=== PATIENT | male | born 1940 | race Caucasian/White ===

== ENCOUNTER 2016-11-20 06:10 | Observation (INO) | payer MEDICARE, BC ==
[2016-11-20 07:02] LABS: HEMOGLOBIN 14.3 gm/dl (14.0-17.5); RED BLOOD COUNT 4.66 M/UL (4.20-5.50); WHITE BLOOD COUNT 3.6 K/UL (4.5-11.0)
[2016-11-20 07:20] LABS: BUN/CREATININE RATIO 23 (0-10)
[2016-11-20] MEDS ORDERED: GLUCOPHAGE1000 MG PO (11:36)
[2016-11-20] MEDS ORDERED: GLUCOTROL 10 MG10 MG PO (11:36)
[2016-11-20] MEDS ORDERED: LIPITOR TAB 2020 MG PO (11:37)
[2016-11-20] MEDS ORDERED: LOTREL 10-40 M1 EACH PO (11:39)
[2016-11-20] MEDS ORDERED: ZANTAC 150 MG150 MG PO (11:40)
[2016-11-20] MEDS ORDERED: ALDACTONE 25MG25 MG PO (11:40)
[2016-11-20] MEDS ORDERED: VITAMIN D1000 UNIT PO (11:41)
[2016-11-20] MEDS ORDERED: TYLENOL 500 MG500 MG PO (11:43)
[2016-11-20] MEDS ORDERED: ASPIRIN CHEWABL81 MG PO (11:43)
[2016-11-20] MEDS ORDERED: FISH OIL 1,2001 EAC2 PO (11:43)
[2016-11-20] MEDS ORDERED: HUMULIN 70100 UNIT/2 SQ ×2 (11:45→11:46)
[2016-11-20] MEDS ORDERED: LOPRESSOR100 MG PO (11:49)
[2016-11-21 06:33] LABS: HEMOGLOBIN 13.8 gm/dl (14.0-17.5); RED BLOOD COUNT 4.48 M/UL (4.20-5.50)
[2016-11-21 06:34] LABS: WHITE BLOOD COUNT 5.1 K/UL (4.5-11.0)
[2016-11-21 06:55] LABS: BUN/CREATININE RATIO 22 (0-10)
[2016-11-22 06:19] LABS: BUN/CREATININE RATIO 26 (0-10)
[2016-11-22] MEDS ORDERED: ASPIRIN EC325 MG PO (10:01)
== END 2016-11-22 10:24 | disposition home or self-care (01) ==
LOC: ER1 06:10 → M/S 08:00 → ZEROF 08:00 → M/S 09:19
PROVIDERS: Student in an Organized Health Care Education/Training Program; ADMIT Emergency Medicine
DX: R53.1 Weakness (principal); R47.81 Slurred speech; J11.1 Influenza due to unidentified influenza virus with other respiratory manifestations; I25.10 Atherosclerotic heart disease of native coronary artery without angina pectoris; E11.22 Type 2 diabetes mellitus with diabetic chronic kidney disease; I12.9 Hypertensive chronic kidney disease with stage 1 through stage 4 chronic kidney disease, or unspecified chronic kidney disease; N18.9 Chronic kidney disease, unspecified; G89.29 Other chronic pain; M54.5 Low back pain; K76.0 Fatty (change of) liver, not elsewhere classified; J43.9 Emphysema, unspecified; Z83.3 Family history of diabetes mellitus; Z82.3 Family history of stroke; Z79.82 Long term (current) use of aspirin; Z79.899 Other long term (current) drug therapy; Z95.1 Presence of aortocoronary bypass graft; Z98.1 Arthrodesis status; Z98.890 Other specified postprocedural states
CPT/HCPCS: ECHO; 36415; 70450; 70498; 70551; 71010; 80048; 80053; 80307; 81001; 82550; 82553; 82962; 83874; 84484; 85025; 85610; 85730; 93005; 93306; 93880; 99285; G0378; G0480; J7030; J7050; Q9963

== ENCOUNTER → 2020-11-22 | Outpatient (CLI) | payer MEDICARE, BC ==
[~2020-11-22] MED LIST: ALDACTONE 25MG25 MG PO; ASPIRIN CHEWABL81 MG PO; ASPIRIN EC325 MG PO; FARXIGA10 MG PO; FISH OIL 1,2001 EAC2 PO; GLUCOPHAGE1000 MG PO; GLUCOTROL 10 MG10 MG PO; HUMULIN 70100 UNIT/2 SQ; LIPITOR TAB 2020 MG PO; LOPRESSOR100 MG PO; LOTREL 10-40 M1 EACH PO; PERCOCET 7.5-31 EACH PO; TYLENOL 500 MG500 MG PO; VITAMIN D1000 UNIT PO; ZANTAC 150 MG150 MG PO
[2020-11-22 09:23] LABS: BUN/CREATININE RATIO 17 (0-10)
== END ==
LOC: LAB 08:24
PROVIDERS: Internal Medicine Nephrology
DX: R80.9 Proteinuria, unspecified (principal)
CPT/HCPCS: 36415; 80048; 82043; 82570; 84156

== ENCOUNTER 2021-02-19 02:30 | Emergency (ER) | payer MEDICARE, BC ==
[2021-02-19 02:54] LABS: HEMOGLOBIN 13.4 gm/dl (14.0-17.5); RED BLOOD COUNT 4.52 M/UL (4.20-5.50); WHITE BLOOD COUNT 10.6 K/UL (4.5-11.0)
[2021-02-19 03:00] LABS: BUN/CREATININE RATIO 14 (0-10)
== END 2021-02-19 06:00 | disposition home or self-care (01) ==
LOC: ER1 02:30
PROVIDERS: Family Medicine
DX: S09.90XA Unspecified injury of head, initial encounter (principal); E11.649 Type 2 diabetes mellitus with hypoglycemia without coma; Z79.4 Long term (current) use of insulin; W19.XXXA Unspecified fall, initial encounter; Y92.239 Unspecified place in hospital as the place of occurrence of the external cause
CPT/HCPCS: 70450; 80053; 82550; 82553; 82962; 83874; 84484; 85025; 93005; 99284

== ENCOUNTER → 2021-02-24 | Outpatient (CLI) | payer MEDICARE, BC | LOC: HEART 5 10:42 | DX: I50.9 Heart failure, unspecified (principal); I25.10 Atherosclerotic heart disease of native coronary artery without angina pectoris; I25.5 Ischemic cardiomyopathy; I08.2 Rheumatic disorders of both aortic and tricuspid valves; I27.20 Pulmonary hypertension, unspecified | CPT/HCPCS: 93306 ==

== ENCOUNTER 2021-05-23 08:34 | Inpatient (IN) | payer MEDICARE, BC ==
[~2021-05-23] VITALS: Ht 180.3 cm; Wt 107.5 kg
[~2021-05-23 08:34] MED LIST changes: -ALDACTONE 25MG25 MG PO; -ASPIRIN EC325 MG PO; -FISH OIL 1,2001 EAC2 PO; -HUMULIN 70100 UNIT/2 SQ; -LOPRESSOR100 MG PO; -LOTREL 10-40 M1 EACH PO; -TYLENOL 500 MG500 MG PO
[2021-05-23 09:17] LABS: HEMOGLOBIN 12.8 gm/dl (14.0-17.5); RED BLOOD COUNT 4.29 M/UL (4.20-5.50); WHITE BLOOD COUNT 11.8 K/UL (4.5-11.0)
[2021-05-23 09:40] LABS: BUN/CREATININE RATIO 9 (0-10)
[2021-05-23] MEDS ORDERED: ASPIRIN EC81 MG PO (10:01)
[2021-05-23] MEDS ORDERED: LOTREL 10-40 M1 EACH PO (11:39)
[2021-05-23] MEDS ORDERED: ALDACTONE 25MG25 MG PO (11:40)
[2021-05-23] MEDS ORDERED: TYLENOL EXTRA500 MG PO (11:43)
[2021-05-23] MEDS ORDERED: FISH OIL 1,2001 EAC2 PO (11:43)
[2021-05-23] MEDS ORDERED: NOVOLIN 70100 UNIT/2 INJ ×2 (11:45→11:46)
[2021-05-23] MEDS ORDERED: LOPRESSOR100 MG PO (11:49)
[2021-05-23 12:06] LABS: BORDETELLA PARAPERTUSSIS Not Detected (Not Detectd); BORDETELLA PERTUSSIS Not Detected (Not Detectd); CHLAMYDIA PNEUMONIAE Not Detected (Not Detectd); CORONAVIRUS HKU1 Not Detected (Not Detectd); CORONAVIRUS NL63 Not Detected (Not Detectd); CORONAVIRUS OC43 Not Detected (Not Detectd); CORONOAVIRUS 229E Not Detected (Not Detectd); HUMAN METAPNEUMOVIRUS Not Detected (Not Detectd); HUMAN RHINOVIRUS/ENTEROVIRUS Not Detected (Not Detectd); INFLUENZA A Not Detected (Not Detectd); INFLUENZA B Not Detected (Not Detectd); MYCOPLASMA PNEUMONIAE Not Detected (Not Detectd); PARAINFLUENZA VIRUS 1 Not Detected (Not Detectd); PARAINFLUENZA VIRUS 2 Not Detected (Not Detectd); PARAINFLUENZA VIRUS 3 Not Detected (Not Detectd); PARAINFLUENZA VIRUS 4 Not Detected (Not Detectd); RESPIRATORY SYNCYTIAL VIRUS Not Detected (Not Detectd)
[2021-05-23] MEDS ORDERED: OMEPRAZOLE20 MG PO (12:34)
[2021-05-23] MEDS ORDERED: GABAPENTIN400 MG PO (12:35)
[2021-05-23] MEDS ORDERED: CRESTOR10 MG PO (12:36)
[2021-05-23] MEDS ORDERED: VITAMIN C500 M4 PO (12:40)
[2021-05-23] MEDS ORDERED: VITAMIN B-121000 MCG PO (12:41)
[2021-05-23] MEDS ORDERED: MAGNESIUM500 MG PO (12:41)
[2021-05-23 13:14] LABS: SARS-CoV-2 NOT DETECTED (Not Detectd)
[2021-05-23] MEDS ORDERED: GLUCOPHAGE 500500 MG PO (16:45)
[2021-05-24 03:21] LABS: HEMOGLOBIN 11.8 gm/dl (14.0-17.5); RED BLOOD COUNT 3.94 M/UL (4.20-5.50); WHITE BLOOD COUNT 9.8 K/UL (4.5-11.0)
[2021-05-24 03:43] LABS: BUN/CREATININE RATIO 9 (0-10)
--- NOTE | 2021-05-24 11:56 | NUR ---
CALLED PROVIDER FOR NAUSEA MEDICATION FOR PATIENT. COULD NOT REACH PROVIDER. WILL CONTINUE TO MONITOR.
--- NOTE | 2021-05-24 12:03 | NUR ---
CALLED PROVIDER AGAIN FOR NAUSEA MEDICTION FOR PATIENT. NO ANSWER. MESSAGE LEFT WITH CONTACT INFO.
[2021-05-25 10:53] LABS: HEMOGLOBIN 10.9 gm/dl (14.0-17.5); RED BLOOD COUNT 3.65 M/UL (4.20-5.50); WHITE BLOOD COUNT 7.5 K/UL (4.5-11.0)
[2021-05-25 11:07] LABS: BUN/CREATININE RATIO 18 (0-10)
[2021-05-26 08:18] LABS: HEMOGLOBIN 11.1 gm/dl (14.0-17.5); RED BLOOD COUNT 3.78 M/UL (4.20-5.50); WHITE BLOOD COUNT 8.1 K/UL (4.5-11.0)
[2021-05-26 08:49] LABS: BUN/CREATININE RATIO 16 (0-10)
[2021-05-27 11:00] LABS: HEMOGLOBIN 10.4 gm/dl (14.0-17.5); RED BLOOD COUNT 3.46 M/UL (4.20-5.50); WHITE BLOOD COUNT 6.5 K/UL (4.5-11.0)
[2021-05-27 11:24] LABS: BUN/CREATININE RATIO 14 (0-10)
[2021-05-28 07:42] LABS: HEMOGLOBIN 10.4 gm/dl (14.0-17.5); RED BLOOD COUNT 3.43 M/UL (4.20-5.50); WHITE BLOOD COUNT 6.7 K/UL (4.5-11.0)
[2021-05-28 08:03] LABS: BUN/CREATININE RATIO 11 (0-10)
[2021-05-29 07:36] LABS: RED BLOOD COUNT 3.65 M/UL (4.20-5.50); WHITE BLOOD COUNT 7.3 K/UL (4.5-11.0)
[2021-05-29 07:59] LABS: BUN/CREATININE RATIO 12 (0-10)
[2021-05-30 11:44] LABS: HEMOGLOBIN 10.9 gm/dl (14.0-17.5); RED BLOOD COUNT 3.67 M/UL (4.20-5.50); WHITE BLOOD COUNT 7.6 K/UL (4.5-11.0)
[2021-05-30 12:15] LABS: BUN/CREATININE RATIO 12 (0-10)
[2021-05-30] MEDS ORDERED: ACETAMINOPHEN325 MG PO (14:01)
[2021-05-30] MEDS ORDERED: K-DUR TAB 10 M10 MEQ PO (14:01)
[2021-05-30] MEDS ORDERED: METOPROLOL SUCC25 MG PO (14:01)
[2021-05-30] MEDS ORDERED: OMNICEF 300 MG300 MG PO (14:04)
[2021-05-30] MEDS ORDERED: ZITHROMAX500 MG PO (14:04)
[2021-05-30 14:10] LABS: ANTI-CENTROMERE B ANTIBODIES <0.2 AI (0.0-0.9); ANTI-DNA (DS) AB QN <1 IU/mL (0-9); ANTI-JO-1 <0.2 AI (0.0-0.9); ANTICHROMATIN ANTIBODIES <0.2 AI (0.0-0.9); ANTIRIBOSOMAL P ANTIBODIES <0.2 AI (0.0-0.9); ANTISCLERODERMA-70 ANTIBODIES <0.2 AI (0.0-0.9); RNP ANTIBODIES <0.2 AI (0.0-0.9); SJOGREN'S ANTI-SS-A 0.3 AI (0.0-0.9); SJOGREN'S ANTI-SS-B <0.2 AI (0.0-0.9); SMITH ANTIBODIES <0.2 AI (0.0-0.9); SMITH/RNP ANTIBODIES <0.2 AI (0.0-0.9)
[2021-05-30] MEDS ORDERED: PROAIR HFA8.5 GM INH (14:14)
[2021-05-30] MEDS ORDERED: XOPENEX HFA15 GM INH (14:23)
[2021-05-31 08:13] LABS: ATYPICAL PANCA <1:20 titer (Neg:<1:20); CYTOPLASMIC (C-ANCA) <1:20 titer (Neg:<1:20); PERINUCLEAR (P-ANCA) <1:20 titer (Neg:<1:20)
== END 2021-05-30 18:33 | disposition home or self-care (01) | DRG 871 ==
LOC: ER1 08:34 → CDU 11:21 → MED SURG 4 11:21
PROVIDERS: Internal Medicine; Physician Assistant Medical; ADMIT Internal Medicine
DX: A41.9 Sepsis, unspecified organism (principal); J96.01 Acute respiratory failure with hypoxia; J18.9 Pneumonia, unspecified organism; Z20.822 Contact with and (suspected) exposure to COVID-19; I50.23 Acute on chronic systolic (congestive) heart failure; I47.2 Ventricular tachycardia; R65.20 Severe sepsis without septic shock; E11.9 Type 2 diabetes mellitus without complications; I25.5 Ischemic cardiomyopathy; E78.5 Hyperlipidemia, unspecified; D64.9 Anemia, unspecified; I25.10 Atherosclerotic heart disease of native coronary artery without angina pectoris; Z95.1 Presence of aortocoronary bypass graft; Z80.9 Family history of malignant neoplasm, unspecified; Z80.2 Family history of malignant neoplasm of other respiratory and intrathoracic organs; Z82.49 Family history of ischemic heart disease and other diseases of the circulatory system; I25.2 Old myocardial infarction; Z98.1 Arthrodesis status; Z87.891 Personal history of nicotine dependence; Z79.01 Long term (current) use of anticoagulants; Z79.1 Long term (current) use of non-steroidal anti-inflammatories (NSAID); Z79.82 Long term (current) use of aspirin; Z79.4 Long term (current) use of insulin; Z99.81 Dependence on supplemental oxygen; Z95.5 Presence of coronary angioplasty implant and graft; I11.0 Hypertensive heart disease with heart failure
CPT/HCPCS: 36415; 36600; 71045; 71046; 71275; 80048; 80053; 81001; 82550; 82553; 82803; 82962; 83036; 83516; 83605; 83735; 83874; 83880; 84100; 84439; 84443; 84484; 85025; 85027; 85379; 85652; 86140; 86256; 87040; 87633; 93005; 94760; 96374; 99285; J0456; J0696; J1650; J7030; Q9967; U0002

== ENCOUNTER → 2021-06-03 | Outpatient (CLI) | payer MEDICARE, BC ==
[~2021-06-03] MED LIST changes: +ACETAMINOPHEN325 MG PO; +ALDACTONE 25MG25 MG PO; +ASPIRIN EC81 MG PO; +CRESTOR10 MG PO; +FISH OIL 1,2001 EAC2 PO; +GABAPENTIN400 MG PO; +GLUCOPHAGE 500500 MG PO; +K-DUR TAB 10 M10 MEQ PO; +LOPRESSOR100 MG PO; +LOTREL 10-40 M1 EACH PO; +MAGNESIUM500 MG PO; +METOPROLOL SUCC25 MG PO; +NOVOLIN 70100 UNIT/2 INJ; +OMEPRAZOLE20 MG PO; +OMNICEF 300 MG300 MG PO; +PROAIR HFA8.5 GM INH; +TYLENOL EXTRA500 MG PO; +VITAMIN B-121000 MCG PO; +VITAMIN C500 M4 PO; +XOPENEX HFA15 GM INH; +ZITHROMAX500 MG PO
[2021-06-03 09:17] LABS: BUN/CREATININE RATIO 18 (0-10)
[2021-06-04 11:13] LABS: CREATININE, URINE 202.3 mg/dL (Not Estab.)
== END ==
LOC: LAB 08:17
PROVIDERS: Internal Medicine Nephrology
DX: R80.9 Proteinuria, unspecified (principal)
CPT/HCPCS: 36415; 80053; 82043; 82570; 84156

== ENCOUNTER 2021-06-09 16:28 | Emergency (ER) | payer MEDICARE, BC ==
[2021-06-09 18:29] LABS: RED BLOOD COUNT 3.84 M/UL (4.20-5.50); WHITE BLOOD COUNT 7.4 K/UL (4.5-11.0)
[2021-06-09] MEDS ORDERED: ZOFRAN4 MG PO (19:36)
== END 2021-06-09 20:20 | disposition home or self-care (01) ==
LOC: ER1 16:28
PROVIDERS: Preventive Medicine Occupational Medicine
DX: E86.0 Dehydration (principal); I10 Essential (primary) hypertension; E11.9 Type 2 diabetes mellitus without complications; Z95.1 Presence of aortocoronary bypass graft
CPT/HCPCS: 80053; 83690; 85025; 85652; 86140; 93005; 96374; 99284; J2405; Q9967

== ENCOUNTER → 2021-07-11 | Outpatient (CLI) | payer MEDICARE, BC ==
[~2021-07-11] MED LIST changes: +ZOFRAN4 MG PO
== END ==
LOC: KOH-I 12:49
DX: J18.9 Pneumonia, unspecified organism (principal); Z72.0 Tobacco use; R91.8 Other nonspecific abnormal finding of lung field
CPT/HCPCS: 71250

== ENCOUNTER → 2021-07-14 | Outpatient (CLI) | payer MEDICARE, BC | LOC: HEART 5 14:53 | DX: R59.0 Localized enlarged lymph nodes (principal); R94.2 Abnormal results of pulmonary function studies | CPT/HCPCS: 94060; 94729 ==

== ENCOUNTER → 2021-08-17 | Outpatient (CLI) | payer MEDICARE, BC ==
[~2021-08-17] MED LIST changes: +CLINDAMYCIN HC300 MG PO; +HYDROCODON-ACE1 EAC4 PO; +JARDIANCE10 MG PO; +LEVOFLOXACIN500 MG PO; +STOOL SOFTENER100 M1 PO; +VENTOLIN/PROVE0.5 ML INH; +ZESTRIL 40 MG T40 MG PO
[2021-08-17 11:09] LABS: HEMOGLOBIN 15.2 gm/dl (14.0-17.5); RED BLOOD COUNT 4.97 M/UL (4.20-5.50); WHITE BLOOD COUNT 12.3 K/UL (4.5-11.0)
[2021-08-17 11:43] LABS: BUN/CREATININE RATIO 31 (0-10)
== END ==
LOC: LAB 08:45
PROVIDERS: Internal Medicine Cardiovascular Disease
DX: I50.22 Chronic systolic (congestive) heart failure (principal); I25.10 Atherosclerotic heart disease of native coronary artery without angina pectoris; I45.9 Conduction disorder, unspecified; I25.5 Ischemic cardiomyopathy; R06.02 Shortness of breath
CPT/HCPCS: 36415; 71046; 80048; 85025; U0003

== ENCOUNTER → 2021-08-31 | Outpatient (CLI) | payer MEDICARE, BC | LOC: KOH-I 08-18 08:00 | DX: R59.0 Localized enlarged lymph nodes (principal) | CPT/HCPCS: 71250 ==

== ENCOUNTER → 2021-11-24 | Outpatient (CLI) | payer MEDICARE, BC ==
[2021-11-24 10:02] LABS: BUN/CREATININE RATIO 9 (0-10)
[2021-11-25 11:17] LABS: CREATININE, URINE 48.4 mg/dL (Not Estab.)
== END ==
LOC: LAB 08:45
PROVIDERS: Internal Medicine Nephrology
DX: R80.9 Proteinuria, unspecified (principal)
CPT/HCPCS: 36415; 80053; 82043; 82570; 84156

== ENCOUNTER → 2021-12-02 | Outpatient (CLI) | payer MEDICARE, BC ==
[2021-12-02 09:49] LABS: BUN/CREATININE RATIO 17 (0-10)
== END ==
LOC: LAB 09:15
PROVIDERS: Internal Medicine Cardiovascular Disease
DX: I50.9 Heart failure, unspecified (principal); R06.02 Shortness of breath
CPT/HCPCS: 36415; 80048; 83880

== ENCOUNTER 2022-03-22 11:01 | Inpatient (IN) | payer MEDICARE, BC ==
[~2022-03-22] VITALS: Ht 180.3 cm; Wt 102.6 kg
[~2022-03-22 11:01] MED LIST changes: +FISH OIL 1,0001 EACH PO; -FISH OIL 1,2001 EAC2 PO; +NOVOLIN 70100 UNIT/2 SQ; -OMEPRAZOLE20 MG PO; +PRILOSEC OTC20 MG PO
[2022-03-22 12:20] LABS: HEMOGLOBIN 11.6 gm/dl (14.0-17.5); RED BLOOD COUNT 3.69 M/UL (4.20-5.50); WHITE BLOOD COUNT 11.5 K/UL (4.5-11.0)
[2022-03-22] MEDS ORDERED: FUROSEMIDE40 MG PO (14:23)
[2022-03-22] MEDS ORDERED: IPRAT-ALBUT 0.5-3 ML INH (14:24)
[2022-03-22 15:24] LABS: BORDETELLA PARAPERTUSSIS Not Detected (Not Detectd); BORDETELLA PERTUSSIS Not Detected (Not Detectd); CHLAMYDIA PNEUMONIAE Not Detected (Not Detectd); CORONAVIRUS HKU1 Not Detected (Not Detectd); CORONAVIRUS NL63 Not Detected (Not Detectd); CORONAVIRUS OC43 Not Detected (Not Detectd); CORONOAVIRUS 229E Not Detected (Not Detectd); HUMAN METAPNEUMOVIRUS Not Detected (Not Detectd); HUMAN RHINOVIRUS/ENTEROVIRUS Not Detected (Not Detectd); INFLUENZA A Not Detected (Not Detectd); INFLUENZA B Not Detected (Not Detectd); MYCOPLASMA PNEUMONIAE Not Detected (Not Detectd); PARAINFLUENZA VIRUS 1 Not Detected (Not Detectd); PARAINFLUENZA VIRUS 2 Not Detected (Not Detectd); PARAINFLUENZA VIRUS 3 Not Detected (Not Detectd); PARAINFLUENZA VIRUS 4 Not Detected (Not Detectd); RESPIRATORY SYNCYTIAL VIRUS Not Detected (Not Detectd)
[2022-03-22 16:52] LABS: SARS-CoV-2 NOT DETECTED (Not Detectd)
[2022-03-23 02:02] LABS: HEMOGLOBIN 10.1 gm/dl (14.0-17.5); WHITE BLOOD COUNT 9.7 K/UL (4.5-11.0)
[2022-03-23 02:08] LABS: RED BLOOD COUNT 3.29 M/UL (4.20-5.50)
[2022-03-23 02:35] LABS: BUN/CREATININE RATIO 15 (0-10)
[2022-03-24 06:52] LABS: HEMOGLOBIN 10.2 gm/dl (14.0-17.5); RED BLOOD COUNT 3.28 M/UL (4.20-5.50); WHITE BLOOD COUNT 9.9 K/UL (4.5-11.0)
[2022-03-24 07:06] LABS: BUN/CREATININE RATIO 15 (0-10)
[2022-03-25 06:19] LABS: HEMOGLOBIN 10.6 gm/dl (14.0-17.5); RED BLOOD COUNT 3.43 M/UL (4.20-5.50); WHITE BLOOD COUNT 9.9 K/UL (4.5-11.0)
[2022-03-25 06:38] LABS: BUN/CREATININE RATIO 17 (0-10)
== END 2022-03-25 11:40 | disposition home or self-care (01) | DRG 291 ==
LOC: ER1 11:01 → MED SURG 4 13:58 → CDU 13:58 → MED SURG 4 16:19
PROVIDERS: Internal Medicine; Physician Assistant; Physician Assistant Medical; ADMIT Internal Medicine
PROC: B24BZZZ Ultrasonography of Heart with Aorta (ICD-10-PCS; principal; 2022-03-23)
DX: I11.0 Hypertensive heart disease with heart failure (principal); I50.23 Acute on chronic systolic (congestive) heart failure; Z20.822 Contact with and (suspected) exposure to COVID-19; Z66 Do not resuscitate; J96.21 Acute and chronic respiratory failure with hypoxia; N17.9 Acute kidney failure, unspecified; E87.6 Hypokalemia; R11.2 Nausea with vomiting, unspecified; I25.5 Ischemic cardiomyopathy; I27.20 Pulmonary hypertension, unspecified; E11.9 Type 2 diabetes mellitus without complications; E83.42 Hypomagnesemia; E78.5 Hyperlipidemia, unspecified; I08.1 Rheumatic disorders of both mitral and tricuspid valves; I25.10 Atherosclerotic heart disease of native coronary artery without angina pectoris; Z95.810 Presence of automatic (implantable) cardiac defibrillator; Z95.1 Presence of aortocoronary bypass graft; Z80.0 Family history of malignant neoplasm of digestive organs; Z82.49 Family history of ischemic heart disease and other diseases of the circulatory system; Z82.5 Family history of asthma and other chronic lower respiratory diseases; Z79.82 Long term (current) use of aspirin; Z99.81 Dependence on supplemental oxygen
CPT/HCPCS: ECHO; 36415; 36600; 71045; 80048; 80053; 81001; 82550; 82553; 82803; 82962; 83605; 83735; 83880; 84132; 84484; 85025; 85027; 87040; 87633; 93005; 93306; 94640; 94664; 94760; 96374; 96375; 97161; 99285; J1650; J1940; J2405; J3475; U0002

== ENCOUNTER → 2022-05-30 | Outpatient (CLI) | payer MEDICARE, BC ==
[~2022-05-30] MED LIST changes: +FUROSEMIDE40 MG PO; +IPRAT-ALBUT 0.5-3 ML INH
[2022-05-30 09:41] LABS: BUN/CREATININE RATIO 17 (0-10)
[2022-05-31 12:14] LABS: CREATININE, URINE 8.1 mg/dL (Not Estab.)
== END ==
LOC: LAB 08:55
PROVIDERS: Internal Medicine Nephrology
DX: R80.9 Proteinuria, unspecified (principal)
CPT/HCPCS: 36415; 80053; 82043; 82570; 84156